=== PATIENT | male | born 1955 | race Caucasian/White ===

== ENCOUNTER 2022-04-09 14:06 | Observation (INO) | payer OTHER ==
--- OUTSIDE RECORDS SUMMARY | 2022-04-09 14:11 | XMS REPORT | Continuity of Care Document ---
:1955 Author Organization [facility] t Address [address] [place] [address] Care Team Providers Name Role Phone Pcp, Patient Does Not Have A Primary Care Physician [id number] Letty Jauregui MD Attending Clinician LETTY JAUREGUI Attending Clinician Unavailable OSCAR ARANA Attending Clinician Unavailable Ric Oliver PT, Maya Attending Clinician Unavailable Negrito CLANCY, Roberth Samaniego Attending Clinician Unavailable Negrito CLANCY, Dede Mendoza Attending Clinician Unavailable Isiah PT, Donya Wisdom Attending Clinician Unavailable Doctor Unassigned, [place] Attending Clinician Unavailable 1, [facility] Attending Clinician Unavailable Station, [facility] Attending Clinician Unavailable Oscar Ramos Attending Clinician Letty Jauregui MD Admitting Clinician LETTY JAUREGUI Admitting Clinician Unavailable Payers Payer Name Policy Type Policy Number Effective Date Expiration Date S ource Problems Condition Condition Condition Status Onset Resolution Last Treating Co mments Source Name Details Category Date Date Treatment Clinician Date Primary Primary Disease Active Overview: Univ ers osteoarthr osteoarthr 01-07 Formattin ity of itis of itis of 00:00: g of this [place] left knee left knee 00 note Medi sheila might be Branch different from the original. Added automatic ally from request for surgery [id number] Total knee Total knee Disease Active U nivers replacemen replacemen 12-10 it y of t status t status 00:00: [place] 00 [facility] Branch No known No known Disease Meth[facility] di active active st problems problems Hospit a l Allergies, Adverse Reactions, Alerts This patient has no known allergies or adverse reactions. Family History Family Member Diagnosis Comments Start Date Stop Date Source Natural brother Diverticulitis [facility] Natural father Arthritis [facility] Natural father Cancer [facility] Natural father Neuropathy [facility] Natural mother Other [facility] Natural sister Cancer [facility] sister Diabetes [facility] Social History Social Habit Start Date Stop Date Quantity Comments Source History of Current smoker University of tobacco use [place] [facility] History SDOH University o f Alcohol Frequency [place] [facility] History SDOH University o f Alcohol Std [place] [facility] Drinks Branch History SDLA University o f Alcohol Binge [place] [facility] Tobacco Comment 2019-01-23 2019-01-23 Approx. 1 can Univer sity of 00:00:00 00:00:00 [facility] Tobacco use and 2019-01-23 2019-01-23 User of smokeless Un iversity of exposure 00:00:00 00:00:00 tobacco [facility] Alcohol intake 2016-12-20 2016-12-20 Current drinker [facility] 00:00:00 00:00:00 of [facility] (finding) Alcohol Comment 2016-12-14 2016-12-14 3-4 beers 2-3 Method ist 00:00:00 00:00:00 times a week Hospital Sex Assigned At [birth year] [facility] 00:00:00 00:00:00 Hospital Smoking Status Start Date Stop Date Source Ex-smoker 2019-01-23 00:00:00 2019-01-23 00:00:00 [facility] Medications Ordered Filled Start Stop Current Ordering Indication Dosage Frequency Signature Comments Components Source Medication Medication Date Date Medication? Clinician (SIG) Name Name hydroCHLORO 2019- Yes 20mg Take 20 mg Univers thiazide 25 8-20 by mouth ity of mg tablet 16:10: daily. [place] [address] Medical Branch losartan 2018-0 Yes 100mg Take 100 Univ ers 100 mg 8-20 mg by ity of tablet 16:10: mouth [place] [address] daily. Medical Branch carvedilol Yes 25mg Take 25 mg U nivers 25 mg 8-20 by mouth 3 ity of tablet 16:10: (three) [place] [address] times Medical daily. Branch rosuvastati Yes 10mg Take 10 mg Univers n 20 mg 8-20 by mouth ity of tablet 16:10: every [place] 42 evening. Medical Branch coenzyme 0 Yes 1{capsu Take 1 Univ ers Q10 100 mg 8-20 le} capsule by ity of softgel 16:10: mouth [place] 42 daily. Medical Branch aspirin 81 Yes 81mg Take 81 mg U nivers mg chewable 8-20 by mouth ity of tablet 16:10: daily. [place] [address] Medical Branch hydroCHLORO 0 Yes 20mg Take 20 mg Univers thiazide 25 8-20 by mouth ity of mg tablet 16:10: daily. [place] [address] Medical Branch losartan 0 Yes 100mg Take 100 Univ ers 100 mg 8-20 mg by ity of tablet 16:10: mouth [place] 42 daily. Medical Branch carvedilol Yes 25mg Take 25 mg U nivers 25 mg 8-20 by mouth 3 ity of tablet 16:10: (three) [place] times Medical daily. Branch rosuvastati Yes 10mg Take 10 mg Univers n 20 mg 8-20 by mouth ity of tablet 16:10: every [place] 42 evening. Medical Branch coenzyme Yes 1{capsu Take 1 Univ ers Q10 100 mg 8-20 le} capsule by ity of softgel 16:10: mouth [place] 42 daily. Medical Branch aspirin 81 Yes 81mg Take 81 mg U nivers mg chewable 8-20 by mouth ity of tablet 16:10: daily. [place] [address] Medical Branch acetaminoph Yes [id number] 1{tbl} Take 1 Univers en-codeine 8-20 05 tablet by ity of (TYLENOL-CO 00:00: mouth [place] DEINE #3) 00 every 4 Medical 300-30 mg (four) Branch tablet hours as needed for Pain (scale 4-6) or Pain (scale 7-10). acetaminoph 2019 Yes [id number] 1{tbl} Take 1 Univers en-codeine 8-20 05 tablet by ity of (TYLENOL-CO 00:00: mouth [place] DEINE #3) 00 every 4 Medical 300-30 mg (four) Branch tablet hours as needed for Pain (scale 4-6) or Pain (scale 7-10). aspirin 81 Yes [facility] mg chewable 12-19 st tablet 00:30: Hospita 53 l carvedilol Yes [facility] (COREG) 25 12-19 st MG tablet 00:30: Hospita 53 l UBIDECARENO Yes Method i NE/VITAMIN 12-19 st E MIXED 00:30: Hospita (COQ10 SG 53 l 100 ORAL) etodolac Yes [facility] (LODINE) 12-19 st 500 MG 00:30: Hospita tablet 53 l hydroCHLORO Yes Method i thiazide 12-19 st (MICROZIDE) 00:30: Hospit a 12.5 mg 53 l capsule losartan Yes [facility] (COZAAR) 12-19 st 100 MG 00:30: Hospita tablet 53 l rosuvastati Yes Method i n (CRESTOR) 12-19 st 20 MG 00:30: Hospita tablet 53 l traMADol Yes [facility] (ULTRAM) 50 12-19 st mg tablet 00:30: Hospita 53 l cyclobenzap Yes TK 1 T PO M ethodi rine 7-[address] (FLEXERIL) 00:00: Hospita 10 mg 00 l tablet dexamethaso Yes TK 1 T PO M ethodi ne 7-[address] (DECADRON) 00:00: Hospita 0.75 MG 00 l tablet HYDROcodone Yes TK 1 T PO M ethodi -acetaminop 7-10 Q [address] (NORCO) 00:00: PRN FOR Hos olga lidia 5-325 mg 00 PAIN l per tablet estazolam Yes TAKE 1 Method i (PROSOM) 2 5-[address] MG tablet 00:00: MOUTH Hospita 00 EVERY l NIGHT AT BEDTIME NEEDED FOR INSOMNIA Procedures This patient has no known procedures. Plan of Care Planned Activity Planned Date Details Comments Source Future Scheduled 2022-04-09 COLONOSCOPY SCREENING [facility] Test 14:09:20 [code = COLONOSCOPY SCREENING] Future Scheduled 2022-04-09 SHINGLES VACCINES (1 [facility] Test 14:09:20 of 2) [code = SHINGLES VACCINES (1 of 2)] Future Scheduled 2022-04-09 65+ PNEUMOCOCCAL [facility] Test 14:09:20 VACCINE (1 - PCV) [code = 65+ PNEUMOCOCCAL VACCINE (1 - PCV)] Future Scheduled 2022-04-09 INFLUENZA VACCINE [facility] Test 14:09:20 [code = INFLUENZA VACCINE] Future Scheduled 2022-04-09 HEPATITIS B VACCINES [facility] Test 14:09:20 (1 of 3 - 3-dose series) [code = HEPATITIS B VACCINES (1 of 3 - 3-dose series)] Future Scheduled 2022-04-09 COVID-19 VACCINE (#1) [facility] Test 14:09:20 [code = COVID-19 VACCINE (#1)] Encounters Start End Encounter Admission Attending Care Care Encounter Source Date/Time Date/Time Type Type Clinicians Facility Department ID 2022-01-23 2022-01-23 [facility]840.114 [id number] Univers 00:00:00 00:00:00 Letty Schulz [employer] [id number] it y of [place] [id number] Gerber as SONIA?BLEA [phone] Ms [place] BOSS 198 [facility] OFFICE [facility] 2022-01-09 2022-01-09 [facility] 1.2.840.114 [id number] Univers 00:00:00 00:00:00 Letty Schulz [employer] [id number] it y of [place] [id number] Gerber as SONIA?BLEA [phone] Ms [place] BOSS 198 [facility] OFFICE [facility] 2019-10-10 2019-10-10 [facility] 1.2.840.114 [id number] Univers 09:19:00 23:59:00 Encounter Letty Schulz [employer] [id number] ity of Surgical [id number] [place] as Specialti [phone] Ms nancyal es [address] [facility] 2019-10-10 2019-10-10 [facility] [id number] Univers 09:06:29 10:01:54 Visit Letty Schulz [employer] [id number] it y of Surgical [id number] [place] as Specialti [phone] Me dical es [address] [facility] 2019-10-10 2019-10-10 Outpatient Jesus JAUREGUI [facility] [id number] Univers 09:45:00 09:45:00 LETTY thompson [facility] 2019-10-08 2019-10-08 Outpatient Jesus JAUREGUI [facility] [id number] Univers 14:45:00 14:45:00 LETTY thompson [facility] 2019-04-24 2019-04-24 Outpatient Jesus ARNAA [facility] [id number] Univers 08:30:00 08:56:29 SOCAR ity [facility] 2019-03-12 2019-03-12 Outpatient Jesus ARANA [facility] [id number] Univers 09:45:00 10:26:55 OSCAR itshagufta [facility] 2019-02-27 2019-02-27 Ancillary Maya Forrest [facility] 1 .2.840.114 [id number] [facility] 09:14:16 09:59:16 Visit Letty Jauregui [id number] [id number] [phone] Ms dical nal 179 [facility] 2019-02-25 2019-02-25 Ancillary Roberth Mahan [facility] 1.2.840. 114 [id number] [facility] 08:45:44 10:36:39 Visit Letty Jauregui [id number] [id number] [phone] Ms dical nal 179 [facility] 2019-02-20 2019-02-20 Ancillary Roberth Mahan [facility] 1.2.840. 114 [id number] [facility] 07:59:15 08:44:15 Visit Letty Jauregui [id number] [id number] [phone] Ms dical nal 179 [facility] 2019-02-18 2019-02-18 Ancillary Dede Mahan [facility] 1.2.840 .114 [id number] Univers 07:55:45 08:40:45 Visit Letty Jauregui [id number] [id number] [phone] Ms dical nal 179 [facility] 2019-02-13 2019-02-13 Ancillary Roberth Mahan [facility] 1.2.840. 114 [id number] Univers 07:57:57 08:42:57 Visit Letty Jauregui [id number] [id number] [phone] Ms dical nal 179 [facility] 2019-02-12 2019-02-12 [facility] [id number] Univers 15:15:00 15:38:50 LETTY ity [facility] 2019-02-12 2019-02-12 Office Juventino [facility] [id number] Univers 15:05:22 15:38:50 Visit Letty Schulz [facility] [id number] it y of Surgical [id number] [place] as Specialti [phone] Ms dical es [address] [facility] 2019-02-11 2019-02-11 Outpatient R JUVENTINO [facility] [id number] Univers 08:00:00 16:49:43 LETTY itshagufta [facility] 2019-02-11 2019-02-11 Ancillary Ric Vickie Oliversha [facility] 1 .2.840.114 [id number] Univers 08:00:43 08:45:43 Visit Letty Jauregui [id number] [id number] [phone] Ms dical nal 179 [facility] 2019-02-07 2019-02-07 Ancillary Donya Joyce [facility] 1.2.840. 114 [id number] Univers 08:45:06 09:30:06 Visit Letty Jauregui [id number] [id number] [phone] Ms dical nal 179 [facility] 2019-02-05 2019-02-05 Ancillary Roberth Mahan [facility] 1.2.840. 114 [id number] Univers 08:11:00 08:56:00 Visit Letty Jauregui Zeus [place] [id number] [id number] [phone] [facility] 179 [facility] 2019-01-30 2019-01-30 [facility] [id number] Univers 08:15:00 11:56:41 LETTY thompson [facility] 2019-01-30 2019-01-30 Ancillary Ric Maya Oliver [facility] 1 .2.840.114 [id number] Univers 08:34:54 09:34:54 Visit Letty Jauregui Zeus [place] [id number] [id number] [phone] [facility] 179 [facility] 2019-01-30 2019-01-30 Orders Doctor CROCKER 1.2.840.114 [id number] Univers 00:00:00 00:00:00 Only Unassigned, TAYLOR [id number] ity of [place] [facility] 4.2.7.2.686 Gerber as [phone] [address] 2019-01-27 2019-01-28 [facility] 1.2.840.114 [id number] Univers 11:37:00 16:10:00 Encounter Letty Zeus [place] [id number] [place].2.686 [place] [phone] [id number] [place] 2019-01-27 2019-01-28 [facility] S[facility] [id number] Univers 11:37:00 16:10:00 LETTY thompson [facility] 2019-01-27 2019-01-27 Orders Doctor CROCKER 1.2.840.114 [id number] Univers 00:00:00 00:00:00 Only Unassigned, TAYLOR 350.1.13.10 ity of [place] [facility] 4.2.7.2.686 Gerber as [phone] [address] 2019-01-20 2019-01-20 [facility] 1.2.840.114 [id number] Univers 08:00:00 23:59:00 Encounter Letty Kear[place] 350.1.13.10 ity of [place] [id number] [facility] [phone] [facility] [address] Branch 2019-01-20 2019-01-20 Corporate Controller 1, [facility] 1.2.840.114 [id number] Univers 07:58:40 08:13:40 Visit Letty Jauregui 350.1.13.10 ity of [place] 4.2.7.2.686 [facility] [phone] [facility] 353 Branch 2019-01-20 2019-01-20 Hospital Letty Jauregui [facility] 1.2.840 .114 [id number] Univers 07:59:58 07:59:58 Encounter Station, [facility] Som 350.1.13 .10 ity of [place] 4.2.7.2.686 [facility] [phone] [facility] [address] [place] 2019-01-20 2019-01-20 [facility] [id number] [facility] 07:30:00 07:30:00 LETTY thompson [facility] 2019-01-07 2019-01-07 Prep For Juventino [facility] 1.2.840.114 [id number] [facility] 00:00:00 00:00:00 Surgery Letty Schulz Health 350.1.13.10 it y of Surgical [id number] Ger[place] as Specialti [phone] Ms dical es [address] [facility] 2019-01-06 2019-01-06 Office Laurie [facility] 1.2.840.114 [id number] Univers 16:10:33 16:36:38 Visit Oscar Diaz Health 350.1.13.10 it y of Surgical [id number] [place] as Specialti [phone] Ms dical es [address] [facility] 2018-11-01 2018-11-01 Outpatient JUVENTINO [facility] [id number] Univers 10:20:07 23:59:00 LETTY thompson [facility] Results This patient has no known results.
[2022-04-09] MEDS ORDERED: ONDANSETRON 4 MG/2 ML VIAL ONE (14:34)
[2022-04-09] MEDS ORDERED: MORPHINE 4 MG/ML SYR ONE (14:34)
--- NOTE | 2022-04-09 15:24 | RAD REPORT ---
EXAM DESCRIPTION: CT - Head C Spine Cap Wo Con - 04/09/2022 2:46 pm CLINICAL HISTORY: Head and neck injury with chest and abdominal pain status post fall TECHNIQUE: Computed axial tomography of head, neck, chest, abdomen and pelvis obtained. IV and oral contrast not requested. Coronal and sagittal reconstruction performed. All CT scans are performed using dose optimization technique as appropriate and may include automated exposure control or mA/KV adjustment according to patient size. COMPARISON: None FINDINGS: An intracranial bleed is not seen. The ventricles are normal in caliber. An extra-axial fluid collection is not noted. . Fluid within the sinuses/mastoids is not seen. A cervical fracture is not seen. No dislocation is noted. A tiny avulsion fracture spinous process T2. Mildly displaced fracture proximal spinous process T3 Moderately displaced comminuted fracture medial right clavicle Mildly displaced fracture anterior first right rib. Nondisplaced fracture second right rib. Mildly displaced fracture right fourth lateral rib. Minimally displaced fracture right fifth anterior rib. Mildly displaced fracture fifth right lateral rib. Moderately displaced fracture right sixth lateral rib. Nondisplaced fracture right sixth anterior rib . Mildly to moderately displaced fracture right posterolateral eighth rib. Minimally displaced fracture right posterior ninth rib. Small right pneumothorax. Small amount of air soft tissue right lower neck The evaluation of mediastinum, milad, vessels, solid organs and bowel are limited secondary to the lac k of contrast administration. A mediastinal hematoma is not noted. A pleural effusion is not seen. A lung contusion is not present. The liver,spleen, pancreas, adrenals,kidneys and bladder do not demonstrate an acute traumatic injury Small to moderate left inguinal hernia contains fat. Small umbilical hernia. Atherosclerotic disease IMPRESSION: No acute intracranial abnormality is seen. A cervical fracture is not visualized. If the patient continues have symptoms to suggest intracrania l/spinal cord pathology MRI be recommended Multiple right rib fractures with small right pneumothorax Fractures involve T2 and T3 spinous processes Moderately displaced fracture medial right clavicle
--- NOTE | 2022-04-09 16:02 | ER ---
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 ll1 Reports mid back pain and R shoulder pain since. Denies LOC. Care prior to arrival: None. Mechanism of Injury: Fall. Trauma event details: [facility] 14:30 Acuity: ROSA MARIA 2 ll1 14:30 Method Of Arrival: Wheelchair [facility] 14:32 Coronavirus screen: Vaccine status: Patient reports being unvaccinated. Client denies 1 travel out of the [place] in the last 14 days. At this time, the client does not indicate any symptoms associated with coronavirus-19. Ebola Screen: Patient denies travel to an Ebola-affected area in the 21 days before illness onset. Initial Sepsis Screen: Does the patient meet any 2 criteria? No. Patient's initial sepsis screen is negative. Does the patient have a suspected source of infection? Yes: Bone or joint infection. Risk Assessment: Do you want to hurt yourself or someone else? Patient reports no desire to harm self or others. Onset of symptoms was April 09, 2022. Triage Assessment: 14:33 General: Appears uncomfortable, Behavior is cooperative, appropriate for age. Pain: ll1 Complains of pain in back. Musculoskeletal: Reports pain in back. Trauma Activation: Alert Physician: ED Physician; Name: Dr. Barrow; Notified At: ; Arrived At: Physician: General Surgeon; Name: ; Notified At: ; Arrived At: Physician: Radiology; Name: ; Notified At: ; Arrived At: Physician: Respiratory; Name: ; Notified At: ; Arrived At: Physician: Lab; Name: ; Notified At: ; Arrived At: Historical: - Allergies: 14:31 No Known Allergies; ll1 - PMHx: 14:31 Hypertensive disorder; A fib; ll1 - PSHx: 14:31 knee replacement; ll1 - Immunization history:: Client reports having NOT received the Covid vaccine. - Social history:: Smoking status: Patient reports use of chewing tobacco. Screenin:30 Abuse screen: Denies threats or abuse. Denies injuries from another. Nutritional eh3 screening: No deficits noted. Tuberculosis screening: No symptoms or risk factors identified. Fall Risk Fall in past 12 months (25 points). IV access (20 points). Total Jackson Fall Scale indicates High Risk Score (45 or more points). Fall prevention measures have been instituted. Side Rails Up X 2 Placed Close to Nursing Station Frequent Obs/Assessments Occuring Family Present and informed to notify staff if the need to leave the bedside As available patient and family educated on Fall Prevention Program and Strategies. Primary Survey: 14:32 NO uncontrolled hemorrhage observed. A: The client is awake and alert. The airway is ll1 patent. Breathing/Chest: Spontaneous respiratory effort, equal unlabored respirations, breath sounds clear bilaterally, regular pattern, symmetrical chest rise and fall. Respiratory effort: spontaneous, unlabored. Circulation: No external hemorrhage present. Regular and strong central pulse, skin warm/dry/normal color. Disability Client is alert. Exposure/Environment: There is no evidence of uncontrolled external bleeding. Assessment: 14:30 General: Appears in no apparent distress. uncomfortable, Behavior is calm, cooperative, eh3 appropriate for age. Pain: Complains of pain in left subscapular area and right subscapular area Pain does not radiate. Pain currently is 8 out of 10 on a pain scale. Quality of pain is described as dull, Pain began 1 hour ago. Is continuous, Alleviated by nothing. Aggravated by repositioning. Neuro: Level of Consciousness is awake, alert, obeys commands, Oriented to person, place, time, situation, Moves all extremities. Cardiovascular: Capillary refill < 3 seconds Patient's skin is warm and dry. Respiratory: Airway is patent Respiratory effort is even, unlabored, Respiratory pattern is regular, symmetrical. GI: No signs and/or symptoms were reported involving the gastrointestinal system. : No signs and/or symptoms were reported regarding the genitourinary system. EENT: No signs and/or symptoms were reported regarding the EENT system. Derm: No signs and/or symptoms reported regarding the dermatologic system. Musculoskeletal: Circulation, motion, and sensation intact. Range of motion: intact in all extremities. 15:18 Reassessment: Patient and/or family updated on plan of care and expected duration. Pain eh3 level reassessed. Patient is alert, oriented x 3, equal unlabored respirations, skin warm/dry/pink. 16:32 Neuro: Sorenson Agitation-Sedation Scale (RASS): 0 - Alert and Calm. eh3 16:32 Reassessment: Patient and/or family updated on plan of care and expected duration. Pain eh3 level reassessed. Patient is alert, oriented x 3, equal unlabored respirations, skin warm/dry/pink. 17:19 Pain: Pain currently is 5 out of 10 on a pain scale. Neuro: Sorenson Agitation-Sedation eh3 Scale (RASS): 0 - Alert and Calm. 18:30 Reassessment: Patient and/or family updated on plan of care and expected duration. Pain eh3 level reassessed. Patient is alert, oriented x 3, equal unlabored respirations, skin warm/dry/pink. Vital Signs: 14:30 BP 100 / 68; Pulse 55; Resp 16; Pulse Ox 96% on R/A; eh3 14:32 BP 100 / 68; Pulse 57; Resp 18; Temp 97.2; Pulse Ox 98% ; Weight 74.84 kg; Height 5 ft. ll1 7 in. (170.18 cm); Pain 8/10; 15:18 BP 108 / 58; Pulse 55; Resp 16; Pulse Ox 95% on R/A; eh3 16:32 BP 124 / 60; Pulse 65; Resp 16; Pulse Ox 98% on 2 lpm NC; eh3 17:30 BP 147 / 76; Pulse 72; Resp 16; Pulse Ox 100% on 2 lpm NC; eh3 18:30 BP 124 / 70; Pulse 77; Resp 16; Pulse Ox 96% on 2 lpm NC; eh3 14:32 Body Mass Index 25.84 (74.84 kg, 170.18 cm) ll1 ED Course: 14:07 Patient arrived in ED. as 14:09 [facility]C [facility] kb 14:09 Serjio Barrow MD is Attending Physician. kb 14:23 Linette Frausto RN is Primary Nurse. eh3 14:30 Arm band placed on Patient placed in an exam room, on a stretcher. ll1 14:30 Patient has correct armband on for positive identification. Bed in low position. Call eh3 light in reach. Side rails up X2. Adult w/ patient. Client placed on continuous cardiac and pulse oximetry monitoring. NIBP monitoring applied. Door closed. Noise minimized. Lights dimmed. Warm blanket given. 14:31 Triage completed. ll1 14:48 CT Traumagram (Head C Spine CAP wo con) In Process Unspecified. EDMS 15:00 Inserted saline lock: 20 gauge in right antecubital area, using aseptic technique. eh3 16:00 Theodore Dubose MD is Hospitalizing Provider. kb 16:00 Oxygen administration via nasal cannula \T\ 2L/min. eh3 16:39 SARS RAPID Sent. eh3 17:19 Diet: Patient given snack. Patient given water. Tolerated well. eh3 Administered Medications: 15:04 Drug: Zofran (Ondansetron) 4 mg Route: IVP; Site: right antecubital; eh3 16:10 Follow up: Response: No adverse reaction eh3 15:05 Drug: morphine 4 mg Route: IVP; Infused Over: 4 mins; Site: right antecubital; eh3 16:10 Follow up: Response: Pain is decreased eh3 16:32 Drug: Dilaudid (HYDROmorphone) 1 mg Route: IVP; Site: right antecubital; eh3 17:19 Follow up: Response: Pain is decreased eh3 Outcome: 16:02 Decision to Hospitalize by Provider. kb 20:35 Patient left the ED. tw5 Signatures: Dispatcher [employer] EDMS Elle Jj, CAN PATCHER-C CAN PATCHER-Robyn Mc Lynsay, RN RN ll1 Elba Whitley tw5 Linette Frausto, DAWN RN 3 Corrections: (The following items were deleted from the chart) 15:18 15:00 Inserted saline lock: 20 gauge in right antecubital area, using aseptic eh3 technique. Blood collected. eh3
--- NOTE | 2022-04-09 16:02 | EDPHYS ---
Physician Documentation [facility] Name: Drew Arguello Age: 66 yrs Sex: Male : 1955 Arrival Date: 04/09/2022 Time: 14:07 Bed 19 Private MD: ED Physician Serjio Barrow HPI: 04/09 18:51 This 66 yrs old Male presents to ER via Wheelchair with complaints of Fall Injury - off kb 10 ft ladder, Neck and Upper Back Pain. 18:51 Details of fall: The patient fell from a height, from a ladder, in a freefall-type kb manner. Onset: The symptoms/episode began/occurred just prior to arrival. Associated injuries: The patient sustained upper back injury, pain with movement, injury to the chest, pain with breathing, pain with movement. Severity of symptoms: At their worst the symptoms were moderate, in the emergency department the symptoms are unchanged. The patient has not experienced similar symptoms in the past. The patient has not recently seen a physician. Pt reports he was approx 10 feet up a ladder when he fell backwards, freefalling landing on the ground. Reports pain to upper back and chest. Denies hitting head, loc, dizziness, neck pain. Historical: - Allergies: 14:31 No Known Allergies; ll1 - PMHx: 14:31 Hypertensive disorder; A fib; ll1 - PSHx: 14:31 knee replacement; ll1 - Immunization history:: Client reports having NOT received the Covid vaccine. - Social history:: Smoking status: Patient reports use of chewing tobacco. ROS: 18:51 Constitutional: Negative for fever, chills, and weight loss. kb 18:51 Cardiovascular: Positive for chest pain, with movement, of the back and chest. 18:51 All other systems are negative. Exam: 16:35 Constitutional: This is a well developed, well nourished patient who is awake, alert, kb and in no acute distress. Head/Face: Normocephalic, atraumatic. Cardiovascular: Regular rate and rhythm with a normal S1 and S2. No gallops, murmurs, or rubs. No pulse deficits. Respiratory: Respirations even and unlabored. No increased work of breathing. Talking in full sentences Abdomen/GI: Soft, non-tender. No distention Skin: Warm, dry with normal turgor. Normal color. MS/ Extremity: Pulses equal, no cyanosis. Neurovascular intact. Full, normal range of motion. Neuro: Awake and alert, GCS 15, oriented to person, place, time, and situation. Moves all extremities. Normal gait. Psych: Awake, alert, with orientation to person, place and time. Behavior, mood, and affect are within normal limits. 16:35 Chest/axilla: Palpation: tenderness, that is moderate, of the left lateral anterior chest and left lateral posterior chest. 16:35 Back: pain, that is moderate, of the left scapular area, right scapular area, left subscapular area and right subscapular area, ROM is painful, normal spinal alignment noted. 16:36 ECG was reviewed by the Attending Physician. kb Vital Signs: 14:30 BP 100 / 68; Pulse 55; Resp 16; Pulse Ox 96% on R/A; eh3 14:32 BP 100 / 68; Pulse 57; Resp 18; Temp 97.2; Pulse Ox 98% ; Weight 74.84 kg; Height 5 ft. ll1 7 in. (170.18 cm); Pain 8/10; 15:18 BP 108 / 58; Pulse 55; Resp 16; Pulse Ox 95% on R/A; eh3 16:32 BP 124 / 60; Pulse 65; Resp 16; Pulse Ox 98% on 2 lpm NC; eh3 17:30 BP 147 / 76; Pulse 72; Resp 16; Pulse Ox 100% on 2 lpm NC; eh3 18:30 BP 124 / 70; Pulse 77; Resp 16; Pulse Ox 96% on 2 lpm NC; eh3 14:32 Body Mass Index 25.84 (74.84 kg, 170.18 cm) ll1 MDM: 14:24 Patient medically screened. kb 15:48 Data reviewed: vital signs, nurses notes. Data interpreted: Pulse oximetry: on room air kb is 98 %. Interpretation: normal. 16:00 Counseling: I had a detailed discussion with the patient and/or guardian regarding: the kb historical points, exam findings, and any diagnostic results supporting the discharge/admit diagnosis, lab results, radiology results, the need for further work-up and treatment in the hospital. Physician consultation: Theodore Dubose MD was contacted at 16:00, regarding admission, patient's condition, and will see patient in inpatient room. 16:00 Physician consultation: Roberth Cross MD was contacted at 16:00, regarding consult, kb patient's condition, and will see patient in ED. 04/09 15:29 Order name: CBC with Diff; Complete Time: 16:23 kb 04/09 15:29 Order name: Basic Metabolic Panel; Complete Time: 16:35 kb 04/09 15:29 Order name: Type And Screen; Complete Time: 17:58 kb 04/09 16:04 Order name: SARS RAPID; Complete Time: 17:09 ss 04/09 16:04 Order name: SARS RAPID kb 04/09 20:22 Order name: ABO/RH no charge; Complete Time: 20:28 EDMS 04/09 14:25 Order name: CT Traumagram (Head C Spine CAP wo con); Complete Time: 15:28 kb 04/09 14:25 Order name: IV Start; Complete Time: 14:30 kb 04/09 15:59 Order name: EKG; Complete Time: 15:59 kb 04/09 15:59 Order name: EKG - Nurse/Tech; Complete Time: 16:31 kb 04/09 16:04 Order name: Oxygen; Complete Time: 16:10 kb EC:36 Rate is 54 beats/min. Rhythm is regular. QRS [place] is Normal. CA interval is normal at kb 166 msec. QRS interval is normal at 86 msec. QT interval is normal at 398 msec. Administered Medications: 15:04 Drug: Zofran (Ondansetron) 4 mg Route: IVP; Site: right antecubital; eh3 16:10 Follow up: Response: No adverse reaction eh3 15:05 Drug: morphine 4 mg Route: IVP; Infused Over: 4 mins; Site: right antecubital; eh3 16:10 Follow up: Response: Pain is decreased eh3 16:32 Drug: Dilaudid (HYDROmorphone) 1 mg Route: IVP; Site: right antecubital; eh3 17:19 Follow up: Response: Pain is decreased eh3 Disposition: 04/10 14:16 Co-signature as Attending Physician, Serjio Barrow MD I agree with the assessment and kdr plan of care. Disposition Summary: 04/09/22 16:02 Hospitalization Ordered Hospitalization Status: Observation Provider: Theodore Dubose Location: Telemetry/MedSurg (observation) kb Condition: Stable kb Problem: new kb Symptoms: are unchanged kb Bed/Room Type: Standard kb Room Assignment: 213(04/09/22 17:36) eb Diagnosis - Multiple fractures of ribs, right side kb - T2 and T3 Spinous process fx kb - Fall on and from ladder, initial encounter kb - Pneumothorax, unspecified kb Forms: - Medication Reconciliation Form kb - SBAR form kb Signatures: Dispatcher [employer] EDElle Escobar, LATHE SETUP OPERATOR-C LATHE SETUP OPERATOR-Serjio Kerr MD MD kdr Botello, Elizabeth eb Lewis, Lynsay RN RN ll1 Linette Frausto RN RN eh3 Corrections: (The following items were deleted from the chart) 04/09 17:36 16:02 kb eb
[2022-04-09] MEDS ORDERED: HYDROMORPHONE HCL 1 MG/ML INJ ONE (16:14)
[2022-04-09 16:17] LABS: Absolute Lymphocytes (CBC) 1.4 K/uL (0.7-4.9); Hematocrit 39.2 % (39.6-49.0); Lymphocytes % 11.1 % (15.3-44.8); MCV 95.5 fL (80-100); MPV 8.3 fL (7.6-11.3)
[2022-04-09 17:06] LABS: SARS-CoV-2 Antigen Rapid Res Negative (Negative)
--- NOTE | 2022-04-09 18:48 | P.CNS ---
Date of Consult: 04/09/22 Reason for Consult: Medical Management Requesting Physician: Theodore Dubose Chief Complaint: Fall History of Present Illness: Mr. Drew Arguello is a pleasant 66 year old male who has a past medical history of atrial fibrillation s/p cardiac ablation and hypertension who presents to the [facility] Emergency Department for fall. 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 He denies any head trauma or loss of consciousness. He states that the fall was about 8 feet. He reports generalized body pain/aches. He has not tried take any medications for symptoms. He grades his pain a 10/10 in severity. On review of systems, he denies any fevers, chills, headaches, dizziness, syncope, weakness, chest pain, palpitations, shortness of breath, wheezing, cough, abdominal pain, nausea/vomiting, diarrhea, constipation, hematochezia, melena, dysuria, hematuria, or any other symptoms. He presented to the Emergency Department for further evaluation. Upon presentation, his vital signs were stable. His laboratory studies were notable for WBC count of 12,600. EKG revealed sinus rhythm without STEMI criteria. CT head/cervical spine/chest/abdomen/pelvis revealed, "no acute intracranial abnormality is seen. A cervical fracture is not visualized. If the patient continues have symptoms to suggest intracranial/spinal cord pathology MRI be recommended. Multiple right rib fractures with small right pneumothorax. Fractures involve T2 and T3 spinous processes. Moderately displaced fracture medial right clavicle." In the Emergency Department, he was given ondansetron and morphine. He was admitted to the General Surgery service for further evaluation. General Internal Medicine was consulted for medical management. Allergies No Known Allergies Allergy (Unverified 04/09/22 18:07) Home medications list reviewed: Yes Home Medications: Aspirin Chewable [Aspirin Chewable*] 81 mg PO DAILY 04/09/22 Losartan Potassium [Cozaar] 25 mg PO DAILY 04/09/22 carvediloL [Coreg] 12.5 mg PO BID 04/09/22 hydroCHLOROthiazide [Hydrochlorothiazide*] 12.5 mg PO DAILY 04/09/22 - Past Medical/Surgical History Diabetic: No -: Atrial Fibrillation -: Hypertension -: Cardiac Ablation - Social History Smoking Status: Never smoker (chews tobacco) Counseled patient to stop smoking for: less than 10 minutes Alcohol use: Yes CD- Drugs: No Review of Systems General: Unremarkable Eyes: Unremarkable ENT: Unremarkable Respiratory: Unremarkable Cardiovascular: Unremarkable Gastrointestinal: Unremarkable Genitourinary: Unremarkable Musculoskeletal: Neck Pain, Shoulder Pain, Arm Pain, Back Pain, Leg Pain Integumentary: Unremarkable Neurological: Unremarkable Lymphatics: Unremarkable Physical Examination -Temperature 97.2 F -Heart rate 55 bpm -Respiratory rate 16 breaths/min -Blood pressure 108/58 - SPO2 95% on room air General: Alert, In no apparent distress, Oriented x3 HEENT: Atraumatic, PERRLA, Mucous membr. moist/pink, EOMI, Sclerae nonicteric Neck: Supple, JVD not distended Respiratory: Clear to auscultation bilaterally, Normal air movement Cardiovascular: No edema, Regular rate/rhythm, Normal S1 S2, No gallops, No rubs, No murmurs Capillary refill: <2 Seconds Gastrointestinal: Normal bowel sounds, Soft and benign, Non-distended, No tenderness, No rebound, No guarding Musculoskeletal: No clubbing, Tenderness (generalized) Integumentary: No rashes Neurological: Normal speech, Cranial nerves 3-12 intact, Normal affect Laboratory Data (last 24 hrs) 04/09/22 16:01: Sodium 134 L, Potassium 4.0, BUN 8, Creatinine 0.79, Glucose 95 04/09/22 16:01: WBC 12.60 H, Hgb 13.2 L, Hct 39.2 L, Plt Count 226 Conclusions/Impression: ASSESSMENT: # Traumatic Fall complicated by Multiple Rib Fractures, T2/T3 Spinous Fractures, Right Medial Clavicular Fracture, and a Small Right Pneumothorax # Chronic Atrial Fibrillation s/p Cardiac Ablation # Tobacco Use Disorder # Moderate Alcohol Use (2 beers/day) # Hypertension RECOMMENDATIONS: Repeat chest x-ray in the morning to monitor pneumothorax Ordered incentive spirometry Pain control with as needed acetaminophen, morphine Nicotine patch ordered - tobacco cessation counseling provided Ordered banana bag - monitor for signs of alcohol withdrawal syndrome - Resume losartan - Hold home carvedilol given borderline bradycardia - Hold hydrochlorothiazide while hospitalized These recommendations were discussed with Dr. Dubose. Internal Medicine will continue to follow along while hospitalized. Roberth Cross M.D.
[2022-04-09] MEDS ORDERED: MORPHINE 2 MG/ML SYR IV PRN (19:34)
[2022-04-09] MEDS ORDERED: MORPHINE 4 MG/ML SYR IV PRN (19:45)
[2022-04-09] MEDS ORDERED: ACETAMINOPHEN 325 MG TABLET PO PRN (19:45)
[2022-04-09] MEDS: NICOTINE 14 MG/PAT TD SCH ×2 (20:00→23:38)
[2022-04-09] MEDS: FOLIC ACID 1 MG, MULTIVITAMINS INJ 10 ML, THIAMINE HCL 100 MG in NA CHLORIDE 0.9% 1,000 ML IV SCH ×2 (20:00→23:41)
[2022-04-09] MEDS ORDERED: ONDANSETRON 4 MG/2 ML VIAL IV PRN (20:24)
[2022-04-09 21:20] VITALS: BMI 25.8
[2022-04-09] MEDS ORDERED: THIAMINE 200 MG/2 ML INJ ONE (23:24)
[2022-04-09] MEDS ORDERED: MULTIVITAMINS 10 ML VIAL (INJ) IV ONE ×2 (23:24→23:40)
[2022-04-09] MEDS ORDERED: FOLIC ACID 5 MG/ML VIAL ONE (23:27)
[2022-04-09] MEDS ORDERED: NA CHLORIDE 0.9% 1,000 ML ONE (23:34)
[2022-04-10] MEDS: MORPHINE 2 MG/ML SYR IV PRN ×4 (00:11→18:04)
[2022-04-10 04:04] LABS: Absolute Lymphocytes (CBC) 1.2 K/uL (0.7-4.9); Hematocrit 36.6 % (39.6-49.0); Lymphocytes % 17.6 % (15.3-44.8); MCV 95.2 fL (80-100); MPV 8.2 fL (7.6-11.3); RBC Red Blood Cell Count 3.85 M/uL (4.33-5.43)
[2022-04-10 04:19] LABS: Potassium 3.8 mmol/L (3.5-5.1)
--- NOTE | 2022-04-10 07:54 | RAD REPORT ---
[facility] 5[facility]17 am CLINICAL HISTORY: pneumothorax COMPARISON: April 09, 2022 FINDINGS: Small right pneumothorax without obvious change Minimal right lung opacities. Heart is normal size. Right rib and clavicular fractures without obvious change IMPRESSION: Small right pneumothorax without obvious change from the prior exam
[2022-04-10] MEDS ORDERED: PNEUMOCOCCAL VACCINE 0.5 ML IMVAC ONE (08:00)
[2022-04-10] MEDS ORDERED: INFLUENZA VACCINE (for 6+ mo) 0.5 ML DOSE IMVAC ONE (08:00)
[2022-04-10] MEDS: FOLIC ACID 1 MG, MULTIVITAMINS INJ 10 ML, THIAMINE HCL 100 MG in NA CHLORIDE 0.9% 1,000 ML IV SCH (09:00)
[2022-04-10] MEDS: NICOTINE 14 MG/PAT TD SCH (09:00)
--- NOTE | 2022-04-10 13:41 | P.HP ---
Date of Service: 04/10/22 PC: This 66-year-old male presented after having fallen off a ladder backwards while working on a greenhouse. HPC: Patient had a fall from approximately 15 feet. He landed on flat on his back. Denies any loss of consciousness. Noticed immediate pain and discomfort with shortness of breath PSHx: Negative PMHx: Had a previous episode of fractured ribs Social Hx: No known allergies Sys R: States he is in pretty good health prior to this event. Retired at home. O/E: Awake alert comfortable HEENT: PERRL, Chest: Tender on the right side of the chest, good inspiratory effort, pain appears to be controlled Abd: Soft nontender Loman: Intact Data: CT scan demonstrates extensive fractures 1 through 9 right side not a lot of displacement, facets and T2-3 also fractured, head CT negative Impression: Stable status post fall from ladder Plan: We will admit this patient at this time for pulmonary care and adequate analgesia. He is extremely sore right now and finds it hard to get up and walk around. Anticipate 2-day hospital stay at least.
--- NOTE | 2022-04-10 15:58 | EKG ---
Test Date: 2022-04-09 Test Time: 16:25:16 Clinical Trial Data Manager: John RHODES MEASUREMENT RESULTS: Intervals: Rate: 54 NH: 166 QRSD: 86 QT: 420 QTc: 398 [place]: P: 79 NH: 166 QRS: 76 T: 79 INTERPRETIVE STATEMENTS: Sinus bradycardia Nonspecific ST abnormality Abnormal ECG No previous ECG available for comparison Electronically Signed On 04-10-22 15:56:21 CDT by Ramu Carter
--- NOTE | 2022-04-10 16:12 | P.PN ---
Subjective Date of Service: 04/10/22 Subjective: No new changes, No C/O voiced, Improving Review of Systems 10-point ROS is otherwise unremarkable Physical Examination - Vital Signs Temperature: 98.0 F Blood Pressure: 96/56 Pulse: 18 Respirations: 18 Pulse Ox (%): 94 - Physical Exam General: Alert, In no apparent distress HEENT: Atraumatic, PERRLA, EOMI Neck: Supple, JVD not distended Respiratory: Clear to auscultation bilaterally, Normal air movement Cardiovascular: Regular rate/rhythm, Normal S1 S2 Gastrointestinal: Normal bowel sounds, No tenderness Musculoskeletal: No tenderness Integumentary: No rashes Neurological: Normal speech, Normal tone, Normal affect Lymphatics: No axilla or inguinal lymphadenopathy - Studies Laboratory Data (last 24 hrs) 04/09/22 16:01: Sodium 134 L, Potassium 4.0, BUN 8, Creatinine 0.79, Glucose 95 04/09/22 16:01: WBC 12.60 H, Hgb 13.2 L, Hct 39.2 L, Plt Count 226 Medications List Reviewed: Yes Assessment & Plan - Problems (Diagnosis) (1) Pneumothorax Current Visit: Yes Status: Acute (2) Atrial fibrillation Current Visit: Yes Status: Acute (3) HTN (hypertension) Current Visit: Yes Status: Acute - Advance Directives Does patient have a Living Will: No Does patient have a Durable POA for Healthcare: No
[2022-04-10] MEDS ORDERED: MAGNESIUM HYDROXIDE 8% 30 ML PO ONE (20:46)
[2022-04-10] MEDS: carvediloL 12.5 MG TAB PO SCH (21:42)
[2022-04-11] MEDS: MORPHINE 2 MG/ML SYR IV PRN ×3 (03:46→15:17)
[2022-04-11 06:08] LABS: Absolute Lymphocytes (CBC) 1.4 K/uL (0.7-4.9); Lymphocytes % 17.5 % (15.3-44.8); MCV 95.5 fL (80-100); MPV 8.5 fL (7.6-11.3); RBC Red Blood Cell Count 3.88 M/uL (4.33-5.43)
[2022-04-11 06:25] LABS: Magnesium 2.5 mg/dL (1.8-2.4); Potassium 3.3 mmol/L (3.5-5.1)
--- NOTE | 2022-04-11 06:59 | RAD REPORT ---
EXAM DESCRIPTION: RAD - Chest Single View - 04/11/2022 5:24 am CLINICAL HISTORY: pnuemothorax COMPARISON: Portable chest April 10, CT chest August 24 TECHNIQUE: AP portable chest image was obtained 04/11/2022 5:24 am . FINDINGS: Lung volumes are low. Bibasilar atelectasis is present potentially masking minimal lung ba se infiltrates. Mid and upper lung [place] are clear of any significant lung parenchymal process. Fail ure and volume overload are not suspected. Heart and vasculature are normal. No measurable pleural effusion and no pneumothorax. No acute bony abnormality seen. No acute aortic findings suspected. IMPRESSION: Bibasilar atelectasis present potentially masking minimal lung base infiltrates. No failure or volume overload.
[2022-04-11] MEDS: NICOTINE 14 MG/PAT TD SCH (07:29)
[2022-04-11] MEDS: carvediloL 12.5 MG TAB PO SCH (08:24)
[2022-04-11] MEDS: FOLIC ACID 1 MG, MULTIVITAMINS INJ 10 ML, THIAMINE HCL 100 MG in NA CHLORIDE 0.9% 1,000 ML IV SCH (08:26)
[2022-04-11 08:52] VITALS: O2SAT 94
[2022-04-11] MEDS ORDERED: ASPIRIN 81 MG CHEWABLE TABLET PO SCH (09:00)
[2022-04-11] MEDS ORDERED: HOME MED 1 EA UNK (Losartan Potassium [Cozaar] 25 MG Tablet) PO SCH (09:00)
[2022-04-11] MEDS ORDERED: LOSARTAN POTASSIUM 50 MG TABLET PO SCH (09:00)
[2022-04-11 13:11] VITALS: BP 132/69; TEMP 98.3
[2022-04-11] MEDS ORDERED: PNEUMOCOCCAL VACCINE 0.5 ML IMVAC ONE (16:00)
== END 2022-04-11 15:48 | disposition home or self-care (01) ==
LOC: ER 14:06 → ERHOLD 17:28 → 2ND 18:49
PROVIDERS: ADMIT Surgery; ATTEND Surgery
DX: S22.41XA Multiple fractures of ribs, right side, initial encounter for closed fracture (principal); S42.011A Anterior displaced fracture of sternal end of right clavicle, initial encounter for closed fracture; S27.0XXA Traumatic pneumothorax, initial encounter; W11.XXXA Fall on and from ladder, initial encounter; Y93.89 Activity, other specified; Y92.017 Garden or yard in single-family (private) house as the place of occurrence of the external cause; I48.11 Longstanding persistent atrial fibrillation; I10 Essential (primary) hypertension; F10.90 Alcohol use, unspecified, uncomplicated; Z20.822 Contact with and (suspected) exposure to COVID-19; Z72.0 Tobacco use; Z71.6 Tobacco abuse counseling; Z23 Encounter for immunization
CPT/HCPCS: 93005; 85025 ×3; 80048 ×3; 36415 ×2; 86900; 83735; 86850; 86901; 83880; 70450; 71250; 72125; 71045 ×2; 90471; 90732; 94010; 96375; 96374; 99284; 87811; J3411; J2270 ×7; J1170; J7030; J2405; G0378 ×4

== ENCOUNTER 2024-08-27 14:02 | Inpatient (IN) | payer OTHER ==
[2024-08-27] MEDS ORDERED: cloNIDine HCL 0.1 MG TAB PO PRN (19:46)
[2024-08-27] MEDS ORDERED: MELATONIN 3 MG TABLET PO PRN (19:46)
[2024-08-27] MEDS ORDERED: DOCUSATE NA/SENNA CONC 1 TAB PO PRN (19:46)
[2024-08-27 19:48] LABS: Specific Gravity 1.018 (1.005-1.030); Sqamous Epithelial None Seen /HPF (None Seen); Urine Bacteria None Seen /HPF (<20); Urine Bilirubin NEGATIVE (Negative); Urine Blood Negative (Negative); Urine Clarity Clear (Clear); Urine Color Light-Yellow (Yellow); Urine Culture Reflex Order NOT NEEDED; Urine Glucose NEGATIVE (Negative); Urine Ketones NEGATIVE (Negative); Urine Micro Reflex YN NO BILL MICROSCOPIC; Urine Nitrite NEGATIVE (Negative); Urine Protein NEGATIVE (Negative); Urine RBC <5 /HPF (None Seen); Urine Urobilinogen Normal (Normal); Urine WBC <5 /HPF (<5)
[2024-08-27] MEDS: INSULIN REGULAR (HUMAN) 100 UNIT/ML SQ SCH (21:00)
[2024-08-27] MEDS ORDERED: ROSUVASTATIN 10 MG TAB PO SCH (21:00)
[2024-08-27 21:27] VITALS: BMI 28.1
[2024-08-27] MEDS: ATORVASTATIN 40 MG TAB PO SCH (22:10)
[2024-08-27] MEDS: APIXABAN 5 MG TABLET PO SCH (22:10)
[2024-08-28] MEDS ORDERED: carvediloL 25 MG TAB PO SCH (06:00)
[2024-08-28 07:11] LABS: Absolute Basophils 0.1 K/uL (0-0.5); Absolute Eosinophils 0.6 K/uL (0-0.5); Absolute Lymphocytes (CBC) 1.6 K/uL (0.7-4.9); Absolute Monocytes 0.9 K/uL (0.1-1.3); Absolute Neutrophil 4.5 K/uL (1.8-8.0); Eosinophils % 7.6 % (0-4.4); Hematocrit 34.7 % (39.6-49.0); Hemoglobin 11.9 g/dL (13.6-17.9); Lymphocytes % 20.6 % (15.3-44.8); MCH 32.8 pg (27.0-35.0); MCHC 34.2 g/dL (32.0-36.0); MPV 7.4 fL (7.6-11.3); Monocytes % 12.2 % (3.3-12.3); Neutrophils % 58.6 % (41.7-73.7); Nucleated Red Blood Cells % 0.1 % (0-0); Platelets 323 thou/uL (152-406); RBC Red Blood Cell Count 3.62 M/uL (4.33-5.43); Red Cell Distribution Width 13.1 % (12.1-15.2)
[2024-08-28 07:24] LABS: Magnesium 2.2 mg/dL (1.6-2.4); Prealbumin 23.3 mg/dL (20-40)
[2024-08-28] MEDS: ACETAMINOPHEN 325 MG TABLET PO PRN (10:16)
[2024-08-28] MEDS: COENZYME Q10- 200 MG CAP PO SCH (10:17)
[2024-08-28] MEDS: LOSARTAN POTASSIUM 50 MG TABLET PO SCH (10:17)
[2024-08-28] MEDS: carvediloL 25 MG TAB PO SCH (10:17)
[2024-08-28] MEDS: AMLODIPINE 5 MG TAB PO SCH (10:23)
[2024-08-28] MEDS ORDERED: NICOTINE 14 MG/PAT TD ONE (20:06)
[2024-08-28] MEDS: MELATONIN 5 MG TABLET PO SCH (20:15)
[2024-08-28] MEDS: NICOTINE 14 MG/PAT TD SCH (21:23)
--- NOTE | 2024-08-29 01:01 | HP ---
Date of Admission: 08/27/2024 Time Of Service: 1 p.m. Chief Complaint: "I had a stroke. My left side is weak." History Of Present Illness: Mr. Arguello is a 69-year-old patient with hypertension, dyslipidemia, heavy alcohol use 4 to 5 beers daily, and [id number] history of cigarette smoking with atrial fibrillati on and had ablation in 2023, who presented to [facility] on 08/22 with left-sided weakness. The patient wa s sent to [facility] on 08/18, which is prior to this recent worsening left-sided weakness for al so left-sided weakness, where he received a CT scan of the head that was negative and his brain MRI s howed a right parasagittal frontal lobe lesion. The finding was an intermediate stroke. He did not receive TNK as the stroke was likely greater than 4.5 hours. He did have a workup for encephalitis a nd lumbar puncture showed elevated protein, mildly elevated glucose. However, the ID physicians and hospitalist did not confirm the diagnosis of encephalitis and the patient's symptoms improved. He wa s treated with dual antiplatelet therapy with statin for stroke and the patient decided to leave [facility] medical advice on 08/19. He was told to follow up with neurologist outpatient and with physical therapy. However, he presented again to [facility] after a fall and was referred to [facility] due to concerns for stroke on 08/22. There again he left-sided weakness, confusion, and lip pain. CT scan of his head and CT angiogram head and neck were negative for any acute ischemic event, so he did not receive TNK of course because he had a recent stroke. EEG was negative. Chest x-ray did identify fr acture of the left sixth rib and there was concern for viral pneumonia. The Orthopedic Surgery was c onsulted and no surgery was recommended. Pain was treated with Tylenol, lidocaine patch, and he was weightbearing as tolerated. He was found to be hyponatremic to sodium of 128 and the Nephrology Serv ice consulted, started on normal saline which improved and his medications were changed including hyd rochlorothiazide. MRI of the brain did identify right anterior cerebral artery territory stroke, lik christelle to be cardioembolic. He was seen by Cardiology and had cardiac electrophysiology evaluation and a loop recorder placed on 08/25 to detect fibrillation and heart dysrhythmia. He was started on hepa rin and then switched to Eliquis 5 mg twice daily. He was evaluated by Physical, Occupational Therap y Service, and Speech Therapy Service and was found to be significant decline in terms of his physica l functioning requiring minimum assistance for bed mobilization. He did ambulate up to about 300 fee t with min assist required. Did have left-sided leaning with fatigue. He was seen by Speech Therapy and cleared to be on regular diet, but recommended continued cognitive therapy for mild attention de ficit, moderate memory deficits. Also, he should maintain aspiration precautions. He was medically cleared and transferred to inpatient rehabilitation to continue improvement and to help reduce his ri sk of further decline. Admission to the inpatient rehabilitation unit is necessary if the patient wo uld likely worsen if he is sent to custodial or home. Also it will help him return to his leve l of functioning and reduce risk of rehospitalization. Past Medical History: Atrial fibrillation, hypertension, osteoarthritis, planned surgery, total knee arthroplasty in 2018 and 2019. X-ray/imaging: Again, MRI showed right distal cerebral artery stroke. EEG, impression was EEG hailey l, awake and asleep. Chest x-ray on 08/22, lateral sixth rib fractures, associated pleural thickenin g. He had prominent bilateral interstitial markings due to atypical pneumonia and transthoracic echo cardiogram on 08/18 showed ejection fraction 55% to 60%, wall motion normal. No regional wall motion abnormalities identified. He did consultation from the Cardiology Service, Renal Service, and PT, O T, Speech, and Orthopedic Service. He was put on alcohol withdrawal prophylaxis, folic acid, thiamin e, and hydrochlorothiazide was put on hold, beta-kalin in place. He had Eliquis 5 mg twice daily f or DVT prophylaxis, melatonin for sleep, Senokot for constipation, Tylenol for pain. Family History: Noncontributory. Social History: As noted above. Alcohol and tobacco use, chronic. Review of Systems: Reports some mild myalgias, arthralgias, and some of course difficulty with expression, comprehension , and left-sided weakness with tendency to fall towards the left. Laboratory Studies: White blood cell count 7.9, hemoglobin 11.3, hematocrit 32.7, platelets 258, pot assium 4.0, glucose 107, BUN 15, creatinine 0.53, calcium 9.0, magnesium 2.0, and sodium 130. Current Level Of Functioning: Currently, eating is at setup assistance, grooming moderate assistance , bathing maximum assistance, upper body dressing moderate assistance, lower body dressing maximum as sistance, donning and doffing footwear maximal assistance. Toileting is at moderate assistance level . Wheelchair mobilization and transferring, moderate assistance. For gait, he did ambulate about 30 0 feet with moderate assistance required, had some difficulty expressing himself, but was able to eff ectively communicate. Physical Examination: Vital Signs: Blood pressure 121/75, pulse of 68, respiratory rate 16, temperature 98. Height is 6 f eet 7 inches, weight 180, BMI 28.19. General: Mr. Arguello is resting in bed in the therapy sessions. HEENT: He appears normocephalic, atraumatic. Sclerae anicteric. Oropharynx pink, moist. Neck: Supple. Chest: Clear. Neuro: He does have some weakness in the left upper and lower extremity around 4/5 proximally and di stally compared to the right side more than the lower extremity than upper extremity . He does have difficulty with expression, comprehension, slow verbal production, and otherwise cranial ne rves appear intact. Lungs: Clear to auscultation. Abdomen: Soft. Extremities: Show no significant edema, cyanosis, or clubbing. Review of Systems: Other than mentioned above, no other positives such as nausea, vomiting, fevers, chills, any signific ant myalgias, arthralgias. Rehab And Medical Diagnosis: Mr. Arguello is a 69-year-old patient with right anterior cerebral artery t erritory stroke. His impairment category 01, stroke. His impairment group code is 01.1, left body i nvolvement, right brain. Etiologic diagnosis, right anterior cerebral artery stroke. His comorbid c onditions include decreased mobility, decreased physical functioning, atrial fibrillation, hypertensi on, osteoarthritis, bilateral total knee arthroplasty, and spine surgery. Plan: He will have physical, occupational, and speech therapy 3.5 hours, 5 of 7 days. He will mark nue with all comorbid condition medications recommended for hypertension, fibrillation with Eliquis. He will have pain managed with Tylenol, Senokot for constipation and if need be, Imodium available. He will also have clonidine 0.1 mg every 4 hours as needed for systolic blood pressure greater than 170. A chest x-ray will be evaluated to rule out pneumonia. Blood work will be followed to rule out any systemic infection. Kidney function will be followed including BUN and creatinine. He will hav e physical, occupational, and speech therapy 3.5 hours, 5 of 7 days. Comorbidities That Are Impacting Rehabilitation: The patient does have a stroke affecting the anteri or cerebral artery territory impacting his ability to ambulate, which will put him at high risk of fa lling and additional potential injury. He is on Eliquis 5 mg twice daily. Therefore, a noncompressi ble site could result in bleeding, so strong fall precautions will be adhered to at all times. Stric t ambulation with 2 wheeled walker, gait belt in place and chair to follow into tow with all therapy sessions. Rehab Specific Plan: Mr. Arguello will have physical, occupational, and speech therapy for 3.5 hours, 5 of 7 days, to improve his ability to transfer from bed to chair, to toilet, to shower as well as perf orming toileting and showering. Occupational therapy will help him with activities of daily living, upper and lower body dressing, and all of the attendant issues. Speech will help him return to his p rior level of cognitive functioning as best as possible and for him to make good safety decisions. Mr. Arguello has a good understanding of the process of admission to the inpatient rehabilitation unit an d how he will benefit from physical, occupational, and speech therapy. If need be, additional help w ill be provided by the Hospitalist Service. He will have 24 hours a day, 7 days a week skilled rehab ilitation and nursing, daily physician evaluation and management, and social media designer evaluation and management for discharge planning, home equipment, and to continue therapy after discharge. Barriers To Discharge: Given the anterior cerebral artery stroke from atrial fibrillation, he is at risk for additional stroke and may not thrive as quickly as would be expected. Therefore, may end up having a prolonged stay or having to go to custodial for him to return towards prior level of functioning and to go back home. Length Of Stay: About 10 to 12 days. Disposition: Expected to be back home with family and continue therapy via Home Health. Prognosis: Good. Code Status: Full code. Rehab Specific Goals: 1. Become independent with upper and lower body dressing and donning and doffing footwear. 2. Independently ambulate 250 feet with a rolling walker. 3. Independently propel a wheelchair 250 feet. 4. Independently go up and down 10 steps with bilateral handrails. 5. Independently perform cognitive functioning including safety awareness, taking medications, and sc heduling all followups as appropriate. The above goals were reviewed with Mr. Arguello and he is in agreement. By signing this document, I acknowledge I personally performed a full physical examination on Mr. Tolliver f no later than 24 hours after his admission to the inpatient rehabilitation unit and determined that he is able to tolerate the above course of treatment at an intensive level for a reasonable period o f time. A detailed individualized plan of care for him will be completed by hospital day 4 based on the preadmission screen, history and physical, and therapy evaluations. KATEY Voice ID: [id number]
[2024-08-29] MEDS: AMLODIPINE 5 MG TAB PO SCH (11:00)
--- NOTE | 2024-08-29 14:22 | P.RH.PN ---
Estimated Length of Stay: 14 Expected Discharge Date: 09/02/24 Discharge Disposition Plan: Home Family Support: Yes Half-Way Goal: Mobility, Transfers, Self Care Vital Signs: Last Vital Signs Temp 98.4 F 08/29/24 07:28 Pulse 71 08/29/24 11:00 Resp 18 08/29/24 07:28 BP 139/72 08/29/24 11:00 Pulse Ox 96 08/29/24 07:28 Laboratory: Laboratory Last Values WBC 7.70 thou/uL (4.3-10.9) 08/28/24 06:39 RBC 3.62 M/uL (4.33-5.43) L 08/28/24 06:39 Hgb 11.9 g/dL (13.6-17.9) L 08/28/24 06:39 Hct 34.7 % (39.6-49.0) L 08/28/24 06:39 MCV 96.0 fL (80-100) 08/28/24 06:39 MCH 32.8 pg (27.0-35.0) 08/28/24 06:39 MCHC 34.2 g/dL (32.0-36.0) 08/28/24 06:39 RDW 13.1 % (12.1-15.2) 08/28/24 06:39 Plt Count 323 thou/uL (152-406) 08/28/24 06:39 MPV 7.4 fL (7.6-11.3) L 08/28/24 06:39 Neutrophils % 58.6 % (41.7-73.7) 08/28/24 06:39 Lymphocytes % 20.6 % (15.3-44.8) 08/28/24 06:39 Monocytes % 12.2 % (3.3-12.3) 08/28/24 06:39 Eosinophils % 7.6 % (0-4.4) H 08/28/24 06:39 Basophils % 1.0 % (0-1.3) 08/28/24 06:39 Absolute Neutrophils 4.5 K/uL (1.8-8.0) 08/28/24 06:39 Absolute Lymphocytes 1.6 K/uL (0.7-4.9) 08/28/24 06:39 Absolute Monocytes 0.9 K/uL (0.1-1.3) 08/28/24 06:39 Absolute Eosinophils 0.6 K/uL (0-0.5) H 08/28/24 06:39 Absolute Basophils 0.1 K/uL (0-0.5) 08/28/24 06:39 Sodium 135 mEq/L (136-145) L 08/28/24 06:39 Potassium 4.0 mEq/L (3.5-5.1) 08/28/24 06:39 Chloride 104 mEq/L (98-107) 08/28/24 06:39 Carbon Dioxide 26 mEq/L (21-32) 08/28/24 06:39 Anion Gap 9.0 mEq/L (5.0-15.0) 08/28/24 06:39 BUN 22 mg/dL (7-18) H 08/28/24 06:39 Creatinine 0.80 mg/dL (0.70-1.30) 08/28/24 06:39 Est GFR (CKD-EPI) 96 ml/min (=/>90) 08/28/24 06:39 Glucose 111 mg/dL (74-106) H 08/28/24 06:39 POC Glucose 105 mg/dL (65-120) 08/28/24 16:10 Hemoglobin A1c 5.6 % (4.2-6.3) 08/28/24 06:39 Calcium 8.8 mg/dL (8.5-10.1) 08/28/24 06:39 Magnesium 2.2 mg/dL (1.6-2.4) 08/28/24 06:39 Albumin 3.0 g/dL (3.4-5.0) L 08/28/24 06:39 Prealbumin 23.3 mg/dL (20-40) 08/28/24 06:39 Urine Color Light-yellow (Yellow) 08/27/24 19: Urine Clarity Clear (Clear) 08/27/24: Urine pH 6.0 (5.0-7.0) 08/27/24 19: Ur Specific [place] 1.018 (1.005-1.030) 08/27/24 19:25 Glucose (UA)(Auto) Negative (Negative) 08/27/24 19: Urine Ketones Negative (Negative) 03/19/25 19:25 Urine Blood Negative (Negative) 08/27/24 19:25 Urine Nitrite Negative (Negative) 08/27/24 19:25 Urine Bilirubin Negative (Negative) 08/27/24 19:25 Urine Urobilinogen Normal (Normal) 08/27/24 19:25 Ur Leukocyte Esterase Negative Mitali/uL (Negative) 08/27/24 19:25 Urine RBC <5 /HPF (None Seen) 08/27/24 19:25 Urine WBC <5 /HPF (<5) 08/27/24 19:25 Ur Squamous Epith Cells None seen /HPF (None Seen) 08/27/24 19:25 Urine Bacteria None seen /HPF (<20) 08/27/24 19:25 Urine Culture Reflexed Not needed 08/27/24 19: Urine Total Protein Negative (Negative) 08/27/24 19:25 Weight: 180 lb Physician Update: Labs reviewed and are stable. SLUMS 21, wants to stop ETOH and tobacco use. SBA bed mobility, CGA transfers, 500' with no assistive device. CGA to supervision with all ADLs. Summary: Patient's care plan and fci goals have been reviewed and revised as necessary. Please see the Rehabilitation Signature page for all necessary signatures.
[2024-08-30] MEDS ORDERED: AMLODIPINE 5 MG TAB PO SCH (10:45)
--- NOTE | 2024-08-30 12:56 | RAD REPORT ---
Exam:Hip Left 2 View HISTORY: Left hip pain FINDINGS: No fracture or dislocation seen. The bones are osteoporotic. Mild osteoarthritis is present. If the patient has symptoms to suggest an occult fracture then MRI would be recommended
--- NOTE | 2024-08-30 19:58 | PN ---
Date of Progress Note: 08/30/2024 Time Of Service: 3:45 p.m. Subjective: Mr. Arguello is resting comfortably in no significant distress. Normocephalic, atraumatic. Sclera is anicteric. Objective: Denies any fevers, chills, nausea, vomiting. Left lower extremity which is slightly weak , the side from his right KRIS stroke, has incoordination. He says placing the foot sometimes is diff icult. Physical Examination: Vital Signs: Blood pressure 146/68, pulse 74, respiratory rate 16, temperature 97.9, oxygen saturati on 93%. General: Mr. Arguello is sitting in chair. HEENT: He is normocephalic, atraumatic. Sclerae anicteric. Oropharynx pink, moist. Neck: Supple. Chest: Clear. Neurologic: He has some diffuse weakness overall, but more weakness in the left lower extremity, rajni e incoordination in the left lower extremity from his stroke. Laboratory Studies: White blood cell count 7.7, hemoglobin 11.9, platelets 323. Sodium 135, potassi um 4.0, chloride 104, carbon dioxide is 26, BUN 22, creatinine 0.80, glucose ranged from 104-112. He moglobin A1c 5.6. Calcium 8.8, magnesium 2.2. Albumin 3.0, prealbumin 23.3. Urinalysis from the completely normal. X-ray And Imaging: There was a hip x-ray done today. The patient did complain of some pain in the l eft hip. No fracture, dislocation seen. The bones are osteoporotic. Mild osteoarthritis also prese nt. Otherwise, no other findings. Progress Made With Physical, Occupational Therapy: Today with physical therapy multiple [id number] t transfers done independently on table and on mat, ambulated 250 feet twice, 150 feet twice, with a single prong cane with standby assistance. He was independent with rolling walker. He was able to g o up to 15 steps independently with bilateral handrails. With occupational therapy, supervision, wolf bal cues for rolling from side to side and doing some pushup exercises. Supervision bed to bath and supervision performing tub transfers. Assessment: Mr. Arguello is a 69-year-old patient in rehabilitation unit with a right anterior cerebral artery stroke and left-sided incoordination and weakness. He has decreased mobility, decreased physi sheila functioning, dyslipidemia, hypertension, insomnia, constipation and tobacco dependency for which he actually did request and is receiving nicotine patch. Plan: Will continue with physical and occupational therapy 3 hours a day, 5/7 days. Continue list o f comorbid condition medications which have been noted including Lipitor, Eliquis, Norvasc Coreg, elin nidine as needed. He has coenzyme Q10, melatonin. He has a nicotine patch, Senokot for constipation and Tylenol as needed for pain. His comorbidities do not negatively impact his rehabilitation. He is doing excellent. GEMA/LUIS ALBERTO Voice ID: [id number] Report ID: [id number]
[2024-09-01 07:53] LABS: Absolute Basophils 0.1 K/uL (0-0.5); Absolute Eosinophils 0.6 K/uL (0-0.5); Absolute Lymphocytes (CBC) 1.9 K/uL (0.7-4.9); Absolute Monocytes 0.8 K/uL (0.1-1.3); Absolute Neutrophil 5.7 K/uL (1.8-8.0); Basophils % 1.3 % (0-1.3); Eosinophils % 6.4 % (0-4.4); Hematocrit 37.1 % (39.6-49.0); Hemoglobin 12.8 g/dL (13.6-17.9); Lymphocytes % 21.1 % (15.3-44.8); MCH 32.7 pg (27.0-35.0); MCHC 34.4 g/dL (32.0-36.0); MCV 95.1 fL (80-100); MPV 7.4 fL (7.6-11.3); Monocytes % 9.3 % (3.3-12.3); Neutrophils % 61.9 % (41.7-73.7); Platelets 388 thou/uL (152-406); Red Cell Distribution Width 12.9 % (12.1-15.2)
[2024-09-01 08:25] LABS: Albumin 3.2 g/dL (3.4-5.0); Anion Gap 7.8 mEq/L (5.0-15.0); Magnesium 2.4 mg/dL (1.6-2.4); Potassium 3.8 mEq/L (3.5-5.1)
--- NOTE | 2024-09-02 00:49 | PN ---
Date of Progress Note: 09/01/2024 Time Of Service: 1:40 p.m. Subjective: Mr. Arguello is sitting in a chair, actually began ambulating around the room. He is ready for discharge. He will be discharged in the morning. He is close to modified independence and indep endent with all activities. His right KRIS stroke has left very little deficit down the left lower ex tremity, not appreciated as he does his exercises. Objective: No fevers, chills, nausea, vomiting, myalgias, arthralgias, rash, headache, weight change . Physical Examination: Vital Signs: Blood pressure 159/77, pulse 79, respiratory rate 16, temperature 97.6, oxygen saturati on 96%. General: Again, Mr. Arguello is ambulating around his room. Again, Mr. Arguello is doing well. He is in no significant distress. HEENT: He is normocephalic, atraumatic. Sclerae anicteric. Oropharynx pink and moist. Neck: Supple. Chest: Clear. Heart: Regular. Extremities: No significant clubbing, cyanosis, or edema noted. His left lower extremity, no signif icant weakness appreciated from his right KRIS stroke. Laboratory Studies: White blood cell count 9.1, hemoglobin 12.8, platelets 388. Sodium 135, potassi um 3.8, chloride 103, carbon dioxide 28, BUN 16, creatinine 0.73, glucose range from 105 to 112, calc ium 9.0, magnesium 2.4, albumin 3.2, prealbumin 23.4. X-ray/imaging: He did have hip x-ray on 08/30/2024, the study was of the left hip, no fracture or di slocation seen. Bones are osteoporotic, mild osteoarthritis. As mentioned that if the possibility o f an occult fracture is required to rule out, MRI will be done. However, the patient is not in any s ignificant pain at this point of that right hip. Progress Made With Physical, Occupational, And Speech Therapy: With physical therapy today, he was f ully independent with all activities of daily living, covering 250 feet 3 times with a single prong c ane, up and down 25 steps, mobilizing very well with a rolling walker. No limitations. With his occ upational therapy, independent with shower transfer, independent with upper and lower body dressing, donning and doffing footwear, all activities independent. With speech, he dropped the BIMS score to a 14 from 15 and improved the SLUMS score from 21 to 25. No further speech therapy was recommended a s the patient is doing very well. Assessment And Plan: Mr. Arguello is a 69-year-old patient in rehabilitation unit with right KRIS stroke, from which he is recovering very well. His left side lower extremity shows no significant deficits. Has no significant speech deficits as well. Still has dyslipidemia, hypertension, stroke risk, vlad otine patch on board for tobacco dependency, melatonin for insomnia. He is going to be discharged in the morning and have Home Health initially and then the patient will likely try very well after that with outpatient physical therapy as he is doing excellent. He was counseled on stroke risk reductio n and should follow up in Neurology Clinic [facility] for neurology followup and for pr ary care, follow up with his primary care physician. GEMA/LUIS ALBERTO Voice ID: [id number] Report ID: [id number]
[2024-09-02 06:42] VITALS: BP 152/72; TEMP 97.8
== END 2024-09-02 10:15 | disposition home health service (06) | DRG 57 ==
LOC: 5TH 18:55
PROVIDERS: ADMIT Psychiatry & Neurology Neurology with Special Qualifications in Child Neurology; ATTEND Psychiatry & Neurology Neurology with Special Qualifications in Child Neurology
DX: I69.354 Hemiplegia and hemiparesis following cerebral infarction affecting left non-dominant side (principal); I10 Essential (primary) hypertension; E78.5 Hyperlipidemia, unspecified; F10.90 Alcohol use, unspecified, uncomplicated; M19.90 Unspecified osteoarthritis, unspecified site; G47.00 Insomnia, unspecified; K59.00 Constipation, unspecified; F17.210 Nicotine dependence, cigarettes, uncomplicated; Z96.653 Presence of artificial knee joint, bilateral
CPT/HCPCS: 36415; 80048; 81001; 82040; 82947; 83036; 83735; 84134; 85025; 87086; 87088; 92523; 97110; 97112; 97116; 97129; 97161; 97165; 97530